=== PATIENT | male | born 1975 | race African-American/Black ===

== ENCOUNTER 2019-11-22 17:21 | Inpatient (IN) | payer OTHER ==
--- NOTE | 2019-11-22 18:31 | HP ---
CIWA Score Nausea/Vomitin-No Nausea/No Vomiting Muscle Tremors: 1-None Visible, but [place] Anxiety: 4-Mod. Anxious/Guarded Agitation: 4-Moderately Restless Paroxysmal Sweats: 3 Orientation: 0-Oriented Tacttile Disturbances: 0-None Auditory Disturbances: 0-None Visual Disturbances: 0-None Headache: 0-None Present CIWA-Ar Total Score: 12 - Admission Criteria OASAS Guidelines: Admission for Medically Managed Detox: Requires at least one of the followin. CIWA greater than 12 2. Seizures within the past 24 hours 3. Delirium tremens within the past 24 hours 4. Hallucinations within the past 24 hours 5. Acute intervention needed for co occurring medical disorder 6. Acute intervention needed for co occurring psychiatric disorder 7. Severe withdrawal that cannot be handled at a lower level of care (continued vomiting, continued diarrhea, abnormal vital signs) requiring intravenous medication and/or fluids 8. Patient presents the following: CIWA greater than 12 Admission Criteria Met: Admission criteria met Admitting History and Physical - Smoking History Smoking history: Current every day smoker Have you smoked in the past 12 months: Yes Aproximately how many cigarettes per day: 12 - Alcohol/Substance Use Hx Alcohol Use: Yes Admission ROS S - [facility] Chief Complaint: HERE FOR ALCOHOL DETOX. C/O WITHDRAWAL SX'S Allergies/Adverse Reactions: Allergies Allergy/AdvReac Type Severity Reaction Status Date / Time No Known Allergies Allergy Verified 11/23/15 14:36 History of Present Illness: HERE FOR ALCOHOL DETOX. CLIENT IS SELF REFERRED. KNOWN TO PROGRAM LAST HERE 2 YEARS AGO. REPORTS DAILY ALCOHOL INTAKE. last use a few hours ago. + EYE BUFFING TURNER AND COUNTER, DENIES HX/O SEIZURES AND BLACKOUTS. HE ALSO ABUSE COCAINE, CANNABIS, DENIES IVDU, HX/O DRUG OVERDOSE. DENIES ANY CLEAN TIME IN THE PAST 1 YEAR. HOMELESS, UNEMPLOYED, OPEN WARRANT Exam Limitations: No Limitations - Ebola screening Have you traveled outside of the country in the last 21 days: No Have you had contact with anyone from an Ebola affected area: No Have you been sick,other than usual withdrawal symptoms: No Do you have a fever: No - Review of Systems Constitutional: No Symptoms Reported EENT: reports: No Symptoms Reported Respiratory: reports: No Symptoms reported Cardiac: reports: No Symptoms Reported GI: reports: No Symptoms Reported : reports: No Symptoms Reported Musculoskeletal: reports: Back Pain Integumentary: reports: Sweating Neuro: reports: No Symptoms reported Endocrine: reports: No Symptoms Reported Hematology: reports: No Symptoms Reported Psychiatric: reports: Orientated x3, Agitated (IRRITABLE), Anxious, Depressed (DENIES SI/HI) Other Systems: Reviewed and Negative Patient History - Patient Medical History Hx Anemia: No Hx Asthma: No Hx Chronic Obstructive Pulmonary Disease (COPD): No Hx Cancer: No Hx Cardiac Disorders: No Hx Congestive Heart Failure: No Hx Hypertension: No Hx Hypercholesterolemia: No Hx Pacemaker: No HX Cerebrovascular Accident: No Hx Seizures: No Hx Dementia: No Hx Diabetes: No Hx Gastrointestinal Disorders: No Hx Liver Disease: No Hx Genitourinary Disorders: No Hx Sexually Transmitted Disorders: No Hx Renal Disease (ESRD): No Hx Thyroid Disease: No Hx Human Immunodeficiency Virus (HIV): No Hx Hepatitis C: No (negative) Hx Depression: Yes Hx Suicide Attempt: Yes (2013 tried to jump in oncoming train but was saved. denies any S/H ideation) Hx Bipolar Disorder: Yes Hx Schizophrenia: No - Patient Surgical History Past Surgical History: Yes Hx Neurologic Surgery: No Hx Cataract Extraction: No Hx Cardiac Surgery: No Hx Lung Surgery: No Hx Breast Surgery: No Hx Breast Biopsy: No Hx Abdominal Surgery: Yes (bilateral inguinal hernia repair) Hx Appendectomy: No Hx Cholecystectomy: No Hx Genitourinary Surgery: No Hx Section: No Hx Orthopedic Surgery: No Anesthesia Reaction: No - PPD History Previous Implant?: Yes Documented Results: Negative w/proof Implanted On Prior [facility] Admission?: Yes Date: 02/06/15 Results: 0 MM PPD to be Administered?: Yes - Smoking Cessation Smoking history: Current every day smoker Have you smoked in the past 12 months: Yes Aproximately how many cigarettes per day: 10 Cigars Per Day: 0 Hx Chewing Tobacco Use: No Initiated information on smoking cessation: Yes 'Breaking Loose' booklet given: 11/22/19 - Substance & Tx. History Hx Alcohol Use: Yes Hx Substance Use: Yes Substance Use Type: Alcohol, Cocaine, Marijuana Hx Substance Use Treatment: Yes ([facility]) - Substances abused Alcohol Substance route: Oral Frequency: Daily Amount used: 3- FIFTH/ 4 CANS OF BEER Age of first use: 18 Date of last use: 11/22/19 Cocaine Substance route: Smoking Frequency: Daily Amount used: 4GMS Age of first use: 18 Date of last use: 11/22/19 Marijuana/Hashish Substance route: Smoking Frequency: 1-2 times per week Amount used: 1/2 JOINT Age of first use: 13 Date of last use: 11/21/19 Admission Physical Exam [facility] - Physical General Appearance: Yes: Moderate Distress, Thin, Tremorous, Sweating, Anxious HEENTM: Yes: EOMI, Normocephalic, Normal Voice, SAEID, Pharynx Normal, Other (POOR DENTITION MISSING TEETH) Respiratory: Yes: Chest Non-Tender, Lungs Clear, Normal Breath Sounds, No Respiratory Distress, No Accessory Muscle Use Neck: Yes: No masses,lesions,Nodules, Supple, Trachea in good position Breast: Yes: Breasts Symetrical Cardiology: Yes: Regular Rhythm, Regular Rate, S1, S2 Abdominal: Yes: Normal Bowel Sounds, Non Tender, Soft, Other (HEALING ABRASION TO LEFT ABD WALL) Genitourinary: Yes: Within Normal Limits Back: Yes: Normal Inspection Musculoskeletal: Yes: full range of Motion, Gait Steady Extremities: Yes: Normal Capillary Refill, Normal Range of Motion, Non-Tender, Tremors (FELT) Neurological: Yes: Fully Oriented, Alert, Motor Strength 5/5, Depressed Affect Integumentary: Yes: Dry, Warm, Other (DRYSKIN WITH MUTLIPLE CALLUSES TO HANDS AND FEET) - Diagnostic (1) Homeless Current Visit: Yes Status: Chronic (2) Depressed affect Current Visit: Yes Status: Acute (3) Alcohol dependence with uncomplicated withdrawal Current Visit: Yes Status: Acute (4) Cocaine dependence Current Visit: Yes Status: Acute Qualifiers: Substance use status: uncomplicated Qualified Code(s): F14.20 - Cocaine dependence, uncomplicated (5) Marijuana dependence Current Visit: Yes Status: Acute (6) Nicotine dependence Current Visit: Yes Status: Chronic (7) Substance induced mood disorder Current Visit: Yes Status: Acute (8) Bipolar disorder Current Visit: Yes Status: Chronic Comment: Historical diagnosis (self- report). Cleared for Admission [facility] - Detox or Rehab [facility] Level of Care: Medically Managed Detox Regimen/Protocol: Librium Claeared for Rehab Admission: No Inpatient Rehab Admission - Rehab Decision to Admit Inpatient rehab admission?: No
[2019-11-22] MEDS ORDERED: chlordiazePOXIDE HCL 25 MG CAPSULE PO PRN (18:37)
[2019-11-22] MEDS ORDERED: DICYCLOMINE HCL 10 MG CAPSULE PO PRN (18:37)
[2019-11-22] MEDS ORDERED: guaiFENesin 200 MG/10 ML 10 ML UNIT-DOSE CUPS PO PRN (18:37)
[2019-11-22] MEDS ORDERED: ONDANSETRON *ODT* 4 MG TABLET SL PRN (18:37)
[2019-11-22] MEDS ORDERED: ACETAMINOPHEN 325 MG TABLET (FP) PO PRN ×2 (18:37)
[2019-11-22] MEDS ORDERED: MENTHOL/PHENOL 1 EACH UD MM PRN (18:37)
[2019-11-22] MEDS ORDERED: P-EPHED 60MG/TRIPROLIDI 2.5MG TABLET PO PRN (18:37)
[2019-11-22] MEDS ORDERED: METHOCARBAMOL 500 MG TABLET PO PRN (18:37)
[2019-11-22] MEDS ORDERED: IBUPROFEN 400 MG TABLET (FP) PO PRN (18:37)
[2019-11-22] MEDS ORDERED: MAG HYDROX/AL HYDROX/SIMETH 30 ML UNIT-DOSE CUP PO PRN (18:37)
[2019-11-22] MEDS ORDERED: NICOTINE POLACRILEX 2 MG GUM BUC PRN (18:37)
[2019-11-22] MEDS ORDERED: hydrOXYzine PAMOATE 25 MG CAPSULE (FP) PO PRN (18:37)
[2019-11-22] MEDS ORDERED: MAGNESIUM HYDROX 2400MG/30ML ORAL SUSPENSION 30 ML CUP PO PRN (18:37)
[2019-11-22] MEDS ORDERED: MAGNESIUM CITRATE 300 ML BOTTLE PO PRN (18:37)
[2019-11-22] MEDS ORDERED: BISMUTH SUBSALICYLATE 524 MG/30 ML UD PO PRN (18:37)
[2019-11-22 21:26] VITALS: BMI 24.7
[2019-11-22] MEDS: THIAMINE HCL 100 MG TABLET (FP) PO SCH (23:11)
[2019-11-22] MEDS: chlordiazePOXIDE HCL 25 MG CAPSULE PO SCH (23:11)
[2019-11-22] MEDS: MELATONIN 5 MG TABLETS PO SCH (23:14)
[2019-11-23] MEDS: chlordiazePOXIDE HCL 25 MG CAPSULE PO SCH ×4 (06:58→22:18)
--- NOTE | 2019-11-23 09:20 | EKG ---
Test Reason : Blood Pressure : / mmHG Vent. Rate : 080 BPM Atrial Rate : 080 BPM P-R Int : 136 ms QRS Dur : 086 ms QT Int : 402 ms P-R-T Axes : 062 045 051 degrees QTc Int : 463 ms NORMAL SINUS RHYTHM NORMAL ECG NO PREVIOUS ECGS AVAILABLE Confirmed by MD HALI, NAM ([id number]) on 11/23/2019 9:19:47 AM Referred By: Confirmed By:NAM LAL MD
--- NOTE | 2019-11-23 09:56 | CONSULT ---
[facility] Psychiatric Consult - Data Date of interview: 11/23/19 Admission source: Self-referred Identifying data: Mr Valera is a 44 years old single Black male, father of an 18 daughter, unemployed, homeless seeking detox treatment for alcohol, cocaine and cannabis Substance Abuse History: Reports history of alcohol, cocaine and marijuana use. Refer to addiction counselor's summary for firther information Medical History: Significant for history of anemia, treatment for gonorrhea and bilatral inguinal hernia repair. Smokes 12 cigarettes daily Psychiatric History: Patient is known for multiple previous admissions to this facility. History is conflictual as evidenced by few descrepancies from previous entries . He reports that his first psychiatric contact occured in 2000 when he was admitted to [facility], diagnosed with Bipolar Disorder and started on psychotropic medications. Reports that later, he was diagnosed with PTSD as well. Reports multiple subsequent psychiatric hospitalizations at various institutions including [facility], [facility], [facility], , [facility]. Reports non adherence to OPD care but visits ED for medication refills. Claims that he takes Seroquel and Gabapentin and has not taken then in 2 months. According to recoerd, he used to be on Gabapentin 400 mg/tid, Seroquel 100 mg/bid. Reports 2 previous suicidal attempt via self-mutilation and trying to jump in front of oncoming train. At present, denies experiencing psychotic, manic symptoms, S/H ideations. However, reports feeling depressed and sleeping poorly. He is willing to resume medications Mental Status Exam - Mental Status Exam Alert and Oriented to: Time, Place, Person Cognitive Function: Fair Mood: Depressed Affect: Appropriate Speech Pattern: Clear Thought Process: Intact, Goal Oriented Hallucinations: Denies Suicidal Ideation: Denies Homicidal Ideation: Denies Insight/Judgement: Poor Sleep: Poorly Appetite: Good Muscle strength/Tone: Normal Gait/Station: Normal Psychiatric Findings - Problem List ([place] 1, 2,3) (1) Bipolar disorder Current Visit: Yes Status: Chronic Comment: Historical diagnosis (self- report). (2) Schizoaffective disorder Current Visit: Yes Status: Ruled-out (3) PTSD (post-traumatic stress disorder) Current Visit: Yes Status: Chronic (4) Substance induced mood disorder Current Visit: Yes Status: Acute (5) Substance-induced sleep disorder Current Visit: Yes Status: Acute (6) Alcohol dependence with uncomplicated withdrawal Current Visit: Yes Status: Acute (7) Cocaine dependence Current Visit: Yes Status: Acute Qualifiers: Substance use status: uncomplicated Qualified Code(s): F14.20 - Cocaine dependence, uncomplicated (8) Cannabis dependence Current Visit: Yes Status: Acute (9) Nicotine dependence Current Visit: Yes Status: Chronic - Initial Treatment Plan Initial Treatment Plan: 1) Start Seroquel 100 mg po HS and Gabapentin 400 mg po TID. 2) Continue inpatient detoxification
--- NOTE | 2019-11-23 10:23 | PN ---
[facility] CIWA - CIWA Score Nausea/Vomitin Muscle Tremors: 2 Anxiety: 3 Agitation: 2 Paroxysmal Sweats: 1-Minimal Palms Moist Orientation: 0-Oriented Tacttile Disturbances: 1-Very Mild Itch/Numbness Auditory Disturbances: 0-None Visual Disturbances: 0-None Headache: 2-Mild CIWA-Ar Total Score: 13 [facility] Progress Note (SOAP) Subjective: alert,irritable,anxious,interrupted sleep,tremor,aching pain in the body and back Objective: 11/23/19 10:27 Vital Signs Temperature 97.8 F 11/23/19 09:02 Pulse Rate 81 11/23/19 09:02 Respiratory Rate 16 11/23/19 09:02 Blood Pressure 110/80 11/23/19 09:02 O2 Sat by Pulse Oximetry (%) 98 11/23/19 09:02 Assessment: 11/23/19 10:29 withdrawal symptom 11/23/19 10:29 labs pending Plan: withdrawal symptom,continue detox librium regimen
[2019-11-23] MEDS: PRENATAL VITAMINS W/ FOLIC ACID TABLET (FP) PO SCH (11:05)
[2019-11-23] MEDS: NICOTINE 14 MG/24 HOURS TOPICAL PATCH TD SCH (11:05)
[2019-11-23 11:09] LABS: HEMATOCRIT 41.4 % (35.4-49); HEMOGLOBIN 13.6 GM/dL (11.7-16.9); MCHC 32.9 g/dl (32.0-35.9); MEAN CELL VOLUME 94.2 fl (80-96); MEAN PLT VOLUME 8.4 fl (7.5-11.1); PLATELET COUNT 353 K/MM3 (134-434); RBC 4.39 M/mm3 (4.00-5.60); RDW 15.4 % (11.9-15.9); WHITE BLOOD COUNT 3.5 K/mm3 (4.0-10.0)
[2019-11-23 11:16] LABS: BILIRUBIN,TOTAL 0.2 mg/dL (0.2-1); BLOOD UREA NITROGEN 13.1 mg/dL (7-18); CALCIUM 8.7 mg/dL (8.5-10.1); CREATININE 0.9 mg/dL (0.55-1.3); POTASSIUM 4.2 mmol/L (3.5-5.1)
[2019-11-23] MEDS: GABAPENTIN 400 MG CAPSULE PO SCH ×2 (14:56→22:18)
[2019-11-23] MEDS ORDERED: QUEtiapine FUMARATE 100 MG TABLET (FP) PO SCH (22:00)
[2019-11-23] MEDS: THIAMINE HCL 100 MG TABLET (FP) PO SCH (22:18)
[2019-11-23] MEDS: MELATONIN 5 MG TABLETS PO SCH (22:38)
[2019-11-24] MEDS ORDERED: chlordiazePOXIDE HCL 25 MG CAPSULE PO SCH (05:00)
[2019-11-24] MEDS: GABAPENTIN 400 MG CAPSULE PO SCH ×2 (07:03→14:49)
--- NOTE | 2019-11-24 10:22 | PN ---
S CIWA - CIWA Score Nausea/Vomitin Muscle Tremors: 2 Anxiety: 1-Mildly Anxious Agitation: 1-Slight > Activity Paroxysmal Sweats: No Perspiration Orientation: 0-Oriented Tacttile Disturbances: 0-None Auditory Disturbances: 0-None Visual Disturbances: 0-None Headache: 0-None Present CIWA-Ar Total Score: 6 [facility] Progress Note (SOAP) Subjective: nausea vomiting tired body aches Objective: 11/24/19 10:19 Vital Signs Temperature 98.8 F 11/24/19 08:30 Pulse Rate 88 11/24/19 08:30 Respiratory Rate 18 11/24/19 08:30 Blood Pressure 116/76 11/24/19 08:30 O2 Sat by Pulse Oximetry (%) 97 11/24/19 08:30 Laboratory Tests 11/22/19 11/23/19 11/23/19 19:15 08:10 08:10 WBC 3.5 L RBC 4.39 Hgb 13.6 Hct 41.4 MCV 94.2 MCH 31.0 MCHC 32.9 RDW 15.4 Plt Count 353 MPV 8.4 Sodium Potassium Chloride Carbon Dioxide Anion Gap BUN Creatinine Est GFR (CKD-EPI)AfAm Est GFR (CKD-EPI)NonAf Random Glucose Calcium Total Bilirubin AST ALT Alkaline Phosphatase Total Protein Albumin Syphilis Serology Non-reactive COVID-19 ([facility]) Not detected 11/23/19 08:10 WBC RBC Hgb Hct MCV MCH MCHC RDW Plt Count MPV Sodium 141 Potassium 4.2 Chloride 110 H Carbon Dioxide 25 Anion Gap 7 L BUN 13.1 Creatinine 0.9 Est GFR (CKD-EPI)AfAm 119.13 Est GFR (CKD-EPI)NonAf 102.79 Random Glucose 126 H Calcium 8.7 Total Bilirubin 0.2 AST 16 ALT 21 Alkaline Phosphatase 78 Total Protein 6.0 L Albumin 3.0 L Syphilis Serology COVID-19 ([facility]Y) aaox3 lying in bed vomitius noted on bedside table no acute distress Assessment: 11/24/19 10:21 withdrawals pt states he doesn't want anything for nausea I am ok, i just need rest Plan: continue detox with lesser dose zofran ordered prn increase fluids
[2019-11-24] MEDS: NICOTINE 14 MG/24 HOURS TOPICAL PATCH TD SCH (11:42)
[2019-11-24] MEDS: PRENATAL VITAMINS W/ FOLIC ACID TABLET (FP) PO SCH (11:42)
[2019-11-24] MEDS ORDERED: chlordiazePOXIDE 5 MG CAPSULE PO SCH (11:45)
[2019-11-24] MEDS ORDERED: TRIMETHOBENZAMIDE HCL 200MG/2ML INJ IM ONE (12:00)
[2019-11-24 13:11] VITALS: BP 143/83; PULSE 91; TEMP 96.9
--- NOTE | 2019-11-24 15:32 | PN ---
[facility] Progress Note Note: pt states he wants to leave to see his daughter. Pt was reminded how sickly he was feeling and vomitus at bedside earlier today. Pt was aware and now wants to leave. Pt was made aware of risk of leaving without completing detox and a chance for relapse, seizure, DT or loss, pt chose to sign out AMA.
--- NOTE | 2019-11-24 15:32 | DS ---
[facility] Detox Discharge Summary Admission Date: 11/22/19 - History Present History: Alcohol Dependence, Cannabis Dependence, Cocaine Dependence - Physical Exam Results Vital Signs: Vital Signs Temperature 96.9 F L 11/24/19 12:23 Pulse Rate 91 H 11/24/19 12:23 Respiratory Rate 11/24/19 12:23 Blood Pressure 143/83 11/24/19 12:23 O2 Sat by Pulse Oximetry (%) 97 11/24/19 12:23 Pertinent Admission Physical Exam Findings: Vital Signs Temperature 96.9 F L 11/24/19 12:23 Pulse Rate 91 H 11/24/19 12:23 Respiratory Rate 11/24/19 12:23 Blood Pressure 143/83 11/24/19 12:23 O2 Sat by Pulse Oximetry (%) 97 11/24/19 12:23 Laboratory Tests 11/22/19 11/23/19 11/23/19 19:15 08:10 08:10 WBC 3.5 L RBC 4.39 Hgb 13.6 Hct 41.4 MCV 94.2 MCH 31.0 MCHC 32.9 RDW 15.4 Plt Count 353 MPV 8.4 Sodium Potassium Chloride Carbon Dioxide Anion Gap BUN Creatinine Est GFR (CKD-EPI)AfAm Est GFR (CKD-EPI)NonAf Random Glucose Calcium Total Bilirubin AST ALT Alkaline Phosphatase Total Protein Albumin Syphilis Serology Non-reactive COVID-19 ([facility]) Not detected 11/23/19 08:10 WBC RBC Hgb Hct MCV MCH MCHC RDW Plt Count MPV Sodium 141 Potassium 4.2 Chloride 110 H Carbon Dioxide 25 Anion Gap 7 L BUN 13.1 Creatinine 0.9 Est GFR (CKD-EPI)AfAm 119.13 Est GFR (CKD-EPI)NonAf 102.79 Random Glucose 126 H Calcium 8.7 Total Bilirubin 0.2 AST 16 ALT 21 Alkaline Phosphatase 78 Total Protein 6.0 L Albumin 3.0 L Syphilis Serology COVID-19 ([facility]) aaox3 ambulating no acute distress however pt is at risk for relapse. pt was made aware and pt chose to sign out AMA. - Treatment Hospital Course: Rehab Referral Accepted - Medication Discharge Medications: Ambulatory Orders NK [No Known Home Medication] 11/22/19 - Diagnosis (1) Alcohol dependence with uncomplicated withdrawal Current Visit: Yes Status: Chronic (2) Cannabis dependence Current Visit: Yes Status: Chronic (3) Cocaine dependence Current Visit: Yes Status: Chronic Qualifiers: Substance use status: uncomplicated Qualified Code(s): F14.20 - Cocaine dependence, uncomplicated (4) Depressed affect Current Visit: Yes Status: Acute (5) Marijuana dependence Current Visit: Yes Status: Acute (6) Substance induced mood disorder Current Visit: Yes Status: Acute (7) Substance-induced sleep disorder Current Visit: Yes Status: Acute (8) Bipolar disorder Current Visit: Yes Status: Chronic (9) Homeless Current Visit: Yes Status: Chronic (10) Nicotine dependence Current Visit: Yes Status: Chronic (11) PTSD (post-traumatic stress disorder) Current Visit: Yes Status: Chronic (12) Schizoaffective disorder Current Visit: Yes Status: Ruled-out - AMA Did Patient Leave Against Medical Advice: Yes
[2019-11-25] MEDS ORDERED: chlordiazePOXIDE HCL 10 MG CAPSULE PO PRN
[2019-11-25] MEDS ORDERED: chlordiazePOXIDE HCL 10 MG CAPSULE PO SCH (05:00)
[2019-11-26] MEDS ORDERED: chlordiazePOXIDE HCL 10 MG CAPSULE PO SCH (05:00)
[2019-11-27] MEDS ORDERED: chlordiazePOXIDE HCL 10 MG CAPSULE PO ONE (05:00)
== END 2019-11-24 03:35 | disposition left against medical advice (07) | DRG 770 ==
LOC: YASAS 17:21 → Y6N 18:51
PROVIDERS: ADMIT Allergy & Immunology; ATTEND Allergy & Immunology
PROC: HZ2ZZZZ Detoxification Services for Substance Abuse Treatment (ICD-10-PCS; principal; 2019-11-22)
DX: F10.230 Alcohol dependence with withdrawal, uncomplicated (principal); F14.20 Cocaine dependence, uncomplicated; F12.20 Cannabis dependence, uncomplicated; F17.210 Nicotine dependence, cigarettes, uncomplicated; F19.282 Other psychoactive substance dependence with psychoactive substance-induced sleep disorder; F19.24 Other psychoactive substance dependence with psychoactive substance-induced mood disorder; F31.9 Bipolar disorder, unspecified; F43.10 Post-traumatic stress disorder, unspecified; D64.9 Anemia, unspecified; R45.89 Other symptoms and signs involving emotional state; Z86.19 Personal history of other infectious and parasitic diseases; Z91.5 Personal history of self-harm; Z59.0 Homelessness
CPT/HCPCS: 36415; 80053; 85027; 86780; 93005; 93010; Q0162; U0003

== ENCOUNTER 2020-06-18 11:07 | Inpatient (IN) | payer OTHER ==
[2020-06-18 11:58] VITALS: BMI 23.6
[2020-06-18] MEDS ORDERED: MENTHOL/PHENOL 1 EACH UD MM PRN (11:58)
[2020-06-18] MEDS ORDERED: ONDANSETRON *ODT* 4 MG TABLET SL PRN (11:58)
[2020-06-18] MEDS ORDERED: ACETAMINOPHEN 325 MG TABLET (FP) PO PRN ×2 (11:58)
[2020-06-18] MEDS ORDERED: BISMUTH SUBSALICYLATE 524 MG/30 ML UD PO PRN (11:58)
[2020-06-18] MEDS ORDERED: MAGNESIUM HYDROX 2400MG/30ML ORAL SUSPENSION 30 ML CUP PO PRN (11:58)
[2020-06-18] MEDS ORDERED: MAG HYDROX/AL HYDROX/SIMETH 30 ML UNIT-DOSE CUP PO PRN (11:58)
[2020-06-18] MEDS ORDERED: chlordiazePOXIDE HCL 25 MG CAPSULE PO PRN (11:58)
[2020-06-18] MEDS ORDERED: NICOTINE POLACRILEX 2 MG GUM BUC PRN (11:58)
[2020-06-18] MEDS ORDERED: MAGNESIUM CITRATE 300 ML BOTTLE PO PRN (11:58)
[2020-06-18] MEDS ORDERED: METHOCARBAMOL 500 MG TABLET PO PRN (11:58)
[2020-06-18] MEDS ORDERED: IBUPROFEN 400 MG TABLET (FP) PO PRN (11:58)
[2020-06-18] MEDS: chlordiazePOXIDE HCL 25 MG CAPSULE PO SCH ×3 (13:07→22:22)
[2020-06-18] MEDS: PRENATAL VITAMINS W/ FOLIC ACID TABLET (FP) PO SCH (13:07)
[2020-06-18] MEDS: NICOTINE 21 MG/24 HOURS TOPICAL PATCH TD SCH (13:07)
[2020-06-18 14:49] LABS: HEMATOCRIT 36.8 % (35.4-49); HEMOGLOBIN 12.2 GM/dL (11.7-16.9); MCH 30.6 pg (25.7-33.7); MCHC 33.2 g/dl (32.0-35.9); MEAN PLT VOLUME 8.5 fl (7.5-11.1); PLATELET COUNT 421 K/MM3 (134-434)
[2020-06-18] MEDS: hydrOXYzine PAMOATE 25 MG CAPSULE (FP) PO SCH ×3 (15:15→22:24)
[2020-06-18 20:27] LABS: HIV INTERPRETATION NEGATIVE (NEGATIVE)
[2020-06-18] MEDS: THIAMINE HCL 100 MG TABLET (FP) PO SCH (22:23)
[2020-06-18] MEDS: MELATONIN 5 MG TABLETS PO SCH (22:45)
[2020-06-19] MEDS: hydrOXYzine PAMOATE 25 MG CAPSULE (FP) PO SCH ×5 (06:08→22:50)
[2020-06-19] MEDS: chlordiazePOXIDE HCL 25 MG CAPSULE PO SCH ×4 (06:08→22:50)
[2020-06-19 10:18] LABS: POTASSIUM 4.9 mmol/L (3.5-5.1)
[2020-06-19 10:20] LABS: CALCIUM 9.3 mg/dL (8.5-10.1)
[2020-06-19 10:21] LABS: ALBUMIN 3.5 g/dl (3.4-5.0); BLOOD UREA NITROGEN 18.4 mg/dL (7-18)
[2020-06-19 10:24] LABS: CREATININE 1.1 mg/dL (0.55-1.3)
[2020-06-19 10:25] LABS: BILIRUBIN,TOTAL 0.7 mg/dL (0.2-1); TOT PROT 7.1 g/dl (6.4-8.2)
[2020-06-19] MEDS: DIVALPROEX SODIUM 250 MG TABLET E.C. PO SCH ×2 (10:32→22:47)
[2020-06-19] MEDS: PRENATAL VITAMINS W/ FOLIC ACID TABLET (FP) PO SCH (10:33)
[2020-06-19] MEDS: NICOTINE 21 MG/24 HOURS TOPICAL PATCH TD SCH (10:49)
[2020-06-19] MEDS: GABAPENTIN 100 MG CAPSULE PO SCH ×2 (14:42→22:50)
[2020-06-19] MEDS ORDERED: QUEtiapine FUMARATE 100 MG TABLET (FP) PO SCH (22:00)
[2020-06-19] MEDS: THIAMINE HCL 100 MG TABLET (FP) PO SCH (22:50)
[2020-06-19] MEDS: MELATONIN 5 MG TABLETS PO SCH (22:50)
[2020-06-20] MEDS: chlordiazePOXIDE HCL 25 MG CAPSULE PO SCH ×2 (05:58→10:01)
[2020-06-20] MEDS: GABAPENTIN 100 MG CAPSULE PO SCH ×2 (05:59→14:01)
[2020-06-20] MEDS: hydrOXYzine PAMOATE 25 MG CAPSULE (FP) PO SCH ×3 (06:07→14:01)
[2020-06-20] MEDS: DIVALPROEX SODIUM 250 MG TABLET E.C. PO SCH (10:00)
[2020-06-20] MEDS: PRENATAL VITAMINS W/ FOLIC ACID TABLET (FP) PO SCH (10:02)
[2020-06-20] MEDS: NICOTINE 21 MG/24 HOURS TOPICAL PATCH TD SCH (10:02)
[2020-06-20 15:40] VITALS: BP 141/92; PULSE 87; TEMP 97.8
[2020-06-21] MEDS ORDERED: chlordiazePOXIDE HCL 10 MG CAPSULE PO PRN
[2020-06-21] MEDS ORDERED: chlordiazePOXIDE HCL 10 MG CAPSULE PO SCH (05:00)
[2020-06-22] MEDS ORDERED: chlordiazePOXIDE HCL 10 MG CAPSULE PO SCH (05:00)
[2020-06-23] MEDS ORDERED: chlordiazePOXIDE HCL 10 MG CAPSULE PO ONE (05:00)
== END 2020-06-20 14:22 | disposition left against medical advice (07) | DRG 770 ==
LOC: YASAS 11:07 → Y6N 12:27
PROVIDERS: ADMIT Allergy & Immunology; ATTEND Allergy & Immunology
PROC: HZ2ZZZZ Detoxification Services for Substance Abuse Treatment (ICD-10-PCS; principal; 2020-06-18)
DX: F10.230 Alcohol dependence with withdrawal, uncomplicated (principal); F14.20 Cocaine dependence, uncomplicated; F12.20 Cannabis dependence, uncomplicated; F17.210 Nicotine dependence, cigarettes, uncomplicated; F25.9 Schizoaffective disorder, unspecified; F31.9 Bipolar disorder, unspecified; F43.10 Post-traumatic stress disorder, unspecified; M54.5 Low back pain; G89.29 Other chronic pain; M41.9 Scoliosis, unspecified; M19.90 Unspecified osteoarthritis, unspecified site; K64.9 Unspecified hemorrhoids; Z86.19 Personal history of other infectious and parasitic diseases; Z59.0 Homelessness
CPT/HCPCS: 36415; 80053; 82962; 85027; 86780; 87389; C9803; U0003; U0005

== ENCOUNTER 2023-02-10 11:03 | Inpatient (IN) | payer OTHER ==
[2023-02-10 12:16] VITALS: BMI 23.5
[2023-02-10] MEDS ORDERED: IBUPROFEN 400 MG TABLET (FP) PO PRN (12:53)
[2023-02-10] MEDS ORDERED: guaiFENesin 600 MG TABLET.ER (FP) PO PRN (12:53)
[2023-02-10] MEDS ORDERED: hydrOXYzine PAMOATE 25 MG CAPSULE (FP) PO PRN (12:53)
[2023-02-10] MEDS ORDERED: IBUPROFEN 600 MG TABLET (FP) PO PRN (12:53)
[2023-02-10] MEDS ORDERED: METHOCARBAMOL 500 MG TABLET PO PRN (12:53)
[2023-02-10] MEDS ORDERED: BISMUTH SUBSALICYLATE 524 MG/30 ML PO PRN (12:53)
[2023-02-10] MEDS ORDERED: ACETAMINOPHEN 325 MG TABLET (FP) PO PRN (12:53)
[2023-02-10] MEDS ORDERED: BENZOCAINE/MENTHOL (CHLORASEPTIC ) LOZENGE MM PRN (12:53)
[2023-02-10] MEDS ORDERED: BENZONATATE 200 MG CAPSULE PO PRN (12:53)
[2023-02-10] MEDS ORDERED: MAGNESIUM HYDROX 2400MG/30ML ORAL SUSPENSION 30 ML CUP PO PRN (12:53)
[2023-02-10] MEDS ORDERED: NALOXONE HCL (KLOXXADO) 8 MG SPRAY NS PRN (12:53)
[2023-02-10] MEDS ORDERED: LOPERAMIDE HCL 2 MG CAPSULE PO PRN (12:53)
[2023-02-10] MEDS ORDERED: DICYCLOMINE HCL 10 MG CAPSULE PO PRN (12:53)
[2023-02-10] MEDS ORDERED: MAG HYDROX/AL HYDROX/SIMETH 30 ML UNIT-DOSE CUP PO PRN (12:53)
[2023-02-10] MEDS ORDERED: ONDANSETRON *ODT* 4 MG TABLET SL PRN (12:53)
[2023-02-10] MEDS ORDERED: POLYETHYLENE GLYCOL (HEALTHYLAX) 3350 17 GM PACKET PO PRN (12:53)
[2023-02-10] MEDS ORDERED: chlordiazePOXIDE HCL 25 MG CAPSULE PO PRN (12:53)
[2023-02-10] MEDS ORDERED: NALOXONE HCL 0.4 MG/ML VIAL IM PRN (12:53)
[2023-02-10] MEDS ORDERED: NICOTINE POLACRILEX 2 MG GUM BUC PRN (12:58)
[2023-02-10] MEDS: PRENATAL VITAMINS W/ FOLIC ACID TABLET (FP) PO SCH (13:35)
[2023-02-10] MEDS ORDERED: METHOCARBAMOL 500 MG TABLET ONE (13:41)
[2023-02-10] MEDS: chlordiazePOXIDE HCL 25 MG CAPSULE PO SCH ×2 (18:02→22:36)
[2023-02-10] MEDS: QUEtiapine FUMARATE 100 MG TABLET (FP) PO SCH (22:36)
[2023-02-10] MEDS: DIVALPROEX SODIUM 250 MG TABLET E.C. PO SCH (22:36)
[2023-02-10] MEDS: THIAMINE HCL 100 MG TABLET (FP) PO SCH (22:36)
[2023-02-10] MEDS: MELATONIN 5 MG TABLETS PO SCH (22:36)
[2023-02-11] MEDS: chlordiazePOXIDE HCL 25 MG CAPSULE PO SCH ×5 (05:45→23:26)
[2023-02-11 08:28] LABS: POTASSIUM 4.1 mmol/L (3.5-5.1)
[2023-02-11 08:33] LABS: ALBUMIN 2.6 g/dl (3.4-5.0); BLOOD UREA NITROGEN 24.3 mg/dL (7-18)
[2023-02-11 08:35] LABS: HEMATOCRIT 23.7 % (35.4-49); MCH 24.2 pg (25.7-33.7); MCHC 29.5 g/dl (32.0-35.9); MEAN CELL VOLUME 82.1 fl (80-96); MEAN PLT VOLUME 8.9 fl (7.5-11.1); PLATELET COUNT 532 10^3/uL (134-434); RBC 2.88 M/mm3 (4.00-5.60); RDW 23.4 % (11.9-15.9); WHITE BLOOD COUNT 4.9 K/mm3 (4.0-10.0)
[2023-02-11 08:37] LABS: BILIRUBIN,TOTAL 0.4 mg/dL (0.2-1); CREATININE 0.8 mg/dL (0.55-1.3); TOT PROT 6.7 g/dl (6.4-8.2)
[2023-02-11] MEDS ORDERED: QUEtiapine FUMARATE 50 MG TABLET PO SCH (10:00)
[2023-02-11] MEDS: PRENATAL VITAMINS W/ FOLIC ACID TABLET (FP) PO SCH (10:49)
[2023-02-11] MEDS: DIVALPROEX SODIUM 250 MG TABLET E.C. PO SCH ×2 (10:49→23:25)
[2023-02-11 11:14] VITALS: BP 104/70; PULSE 128; RESP 17; TEMP 98.1
[2023-02-11] MEDS: MELATONIN 5 MG TABLETS PO SCH (23:26)
[2023-02-11] MEDS: QUEtiapine FUMARATE 100 MG TABLET (FP) PO SCH (23:26)
[2023-02-11] MEDS: THIAMINE HCL 100 MG TABLET (FP) PO SCH (23:26)
[2023-02-12] MEDS ORDERED: chlordiazePOXIDE HCL 25 MG CAPSULE PO SCH (05:00)
[2023-02-13] MEDS ORDERED: chlordiazePOXIDE HCL 10 MG CAPSULE PO PRN
[2023-02-13] MEDS ORDERED: chlordiazePOXIDE HCL 10 MG CAPSULE PO SCH (05:00)
[2023-02-14] MEDS ORDERED: chlordiazePOXIDE HCL 10 MG CAPSULE PO SCH (05:00)
[2023-02-15] MEDS ORDERED: chlordiazePOXIDE HCL 10 MG CAPSULE PO ONE (05:00)
== END 2023-02-11 23:30 | disposition short-term general hospital (02) | DRG 774 ==
LOC: YASAS 11:03 → Y3N 13:52
PROVIDERS: ADMIT Allergy & Immunology; ATTEND Surgery
PROC: HZ2ZZZZ Detoxification Services for Substance Abuse Treatment (ICD-10-PCS; principal; 2023-02-10)
DX: F10.230 Alcohol dependence with withdrawal, uncomplicated (principal); F14.20 Cocaine dependence, uncomplicated; F12.20 Cannabis dependence, uncomplicated; F17.210 Nicotine dependence, cigarettes, uncomplicated; F25.9 Schizoaffective disorder, unspecified; F19.24 Other psychoactive substance dependence with psychoactive substance-induced mood disorder; F31.9 Bipolar disorder, unspecified; D64.9 Anemia, unspecified; M54.50 Low back pain, unspecified; G89.29 Other chronic pain; R53.1 Weakness; Z56.0 Unemployment, unspecified; Z59.02 Unsheltered homelessness
CPT/HCPCS: 36415; 80053; 80307; 82140; 85027; 86780; 87635; 93005; 93010

== ENCOUNTER 2023-02-11 12:08 | Inpatient (IN) | payer OTHER ==
[2023-02-11 14:06] LABS: HEMATOCRIT 23.2 % (35.4-49); MCH 24.3 pg (25.7-33.7); MCHC 30.1 g/dl (32.0-35.9); MEAN CELL VOLUME 80.9 fl (80-96); MEAN PLT VOLUME 8.8 fl (7.5-11.1); PLATELET COUNT 547 10^3/uL (134-434); RBC 2.86 M/mm3 (4.00-5.60); RDW 23.3 % (11.9-15.9); WHITE BLOOD COUNT 7.5 K/mm3 (4.0-10.0)
[2023-02-11 14:17] LABS: POTASSIUM 4.6 mmol/L (3.5-5.1)
[2023-02-11 14:19] LABS: CALCIUM 8.5 mg/dL (8.5-10.1)
[2023-02-11 14:20] LABS: ALBUMIN 2.2 g/dl (3.4-5.0); BLOOD UREA NITROGEN 18.1 mg/dL (7-18)
[2023-02-11 14:23] LABS: CREATININE 0.6 mg/dL (0.55-1.3)
[2023-02-11 14:24] LABS: BILIRUBIN,TOTAL 0.3 mg/dL (0.2-1); TOT PROT 6.4 g/dl (6.4-8.2)
[2023-02-11] MEDS ORDERED: FUROSEMIDE 40 MG/4 ML INJECTABLE VIAL IVPUSH ONE (14:31)
[2023-02-11 14:32] LABS: INR 1.17 (0.83-1.09); PROTHROMBIN TIME (PATIENT) 13.6 SEC (9.7-13.0)
[2023-02-11 14:35] LABS: ACTIVATED PTT 23.5 SECONDS (25.2-36.5)
[2023-02-11 14:43] LABS: ANISOCYTOSIS 3+; MACROCYTOSIS 0; OVALOCYTE 1+; TARGET CELLS 2+; TEAR DROP CELLS 1+
[2023-02-11] MEDS ORDERED: FUROSEMIDE 40 MG/4 ML INJECTABLE VIAL ONE (14:48)
[2023-02-11] MEDS ORDERED: chlordiazePOXIDE HCL 25 MG CAPSULE PO ONE (14:52)
[2023-02-11] MEDS ORDERED: chlordiazePOXIDE HCL 25 MG CAPSULE ONE (14:56)
[2023-02-11] MEDS ORDERED: LORazepam 1 MG TABLET PO PRN (16:12)
[2023-02-11] MEDS ORDERED: THIAMINE HCL 200 MG/2 ML VIAL IVPB ONE (16:29)
[2023-02-11] MEDS ORDERED: LORazepam 2 MG TABLET PO SCH (17:00)
[2023-02-11 17:27] LABS: RETICULOCYTES 2.12 % (0.5-1.5)
[2023-02-11] MEDS: LACTULOSE 20 GM/30 ML UDC (FOR ORAL USE ONLY) PO SCH ×2 (17:42→21:33)
[2023-02-11] MEDS: NICOTINE 14 MG/24 HOURS TOPICAL PATCH TD SCH (17:42)
[2023-02-11 17:48] LABS: PH,URINE 7.5 (5.0-8.0); URINE APPEARANCE CLEAR; URINE BILIRUBIN NEGATIVE (NEGATIVE); URINE COLOR YELLOW; URINE GLUCOSE (UA) NEGATIVE (NEGATIVE); URINE KETONE NEGATIVE (NEGATIVE); URINE LEUK ESTERASE NEGATIVE (NEGATIVE); URINE NITRITE NEGATIVE (NEGATIVE); URINE PROTEIN NEGATIVE (NEGATIVE); URINE UROBILINOGEN 0.2 mg/dL (0.2-1.0)
[2023-02-11] MEDS ORDERED: ACETAMINOPHEN 325 MG TABLET (FP) PO ONE (18:09)
[2023-02-11 18:14] VITALS: BMI 23.6
[2023-02-11] MEDS ORDERED: KETOROLAC TROMETHAMINE 15 MG/ML VIAL IVPUSH ONE (19:14)
[2023-02-11] MEDS ORDERED: LIDOCAINE 5% TOPICAL PATCH TP SCH (19:30)
[2023-02-11 20:15] LABS: BASO % 1.4 % (0-2.0); EOS % 0.4 % (0-4.5); HEMATOCRIT 25.7 % (35.4-49); HEMOGLOBIN 7.7 GM/dL (11.7-16.9); LYMPH % 14.8 % (8-40); MCH 24.2 pg (25.7-33.7); MCHC 29.9 g/dl (32.0-35.9); MEAN PLT VOLUME 8.5 fl (7.5-11.1); MONO % 10.5 % (3.8-10.2); NEUT % 72.9 % (42.8-82.8); PLATELET COUNT 491 10^3/uL (134-434); RBC 3.18 M/mm3 (4.00-5.60); RDW 23.3 % (11.9-15.9); WHITE BLOOD COUNT 8.8 K/mm3 (4.0-10.0)
[2023-02-11] MEDS: ACETAMINOPHEN 1000 MG/100 ML BAG IVPB PRN (20:35)
[2023-02-11] MEDS: PANTOPRAZOLE SODIUM 40 MG VIAL IVPUSH SCH (21:33)
[2023-02-11] MEDS: DIVALPROEX SODIUM 250 MG TABLET E.C. PO SCH (21:33)
[2023-02-11] MEDS: LIDOCAINE PATCH REMOVAL MC SCH (21:33)
[2023-02-11] MEDS: QUEtiapine FUMARATE 100 MG TABLET (FP) PO SCH (21:33)
[2023-02-11] MEDS ORDERED: DIVALPROEX SODIUM 250 MG TABLET E.C. PO SCH (22:00)
[2023-02-11] MEDS ORDERED: QUEtiapine FUMARATE 100 MG TABLET (FP) PO SCH (22:00)
[2023-02-12] MEDS: ACETAMINOPHEN 1000 MG/100 ML BAG IVPB PRN (06:37)
[2023-02-12 07:07] LABS: HEMOGLOBIN 7.5 GM/dL (11.7-16.9); MCH 24.5 pg (25.7-33.7); MCHC 30.1 g/dl (32.0-35.9); MEAN CELL VOLUME 81.6 fl (80-96); MEAN PLT VOLUME 8.5 fl (7.5-11.1); PLATELET COUNT 514 10^3/uL (134-434); RBC 3.07 M/mm3 (4.00-5.60); RDW 22.9 % (11.9-15.9); WHITE BLOOD COUNT 8.5 K/mm3 (4.0-10.0)
[2023-02-12 07:28] LABS: POTASSIUM 4.7 mmol/L (3.5-5.1)
[2023-02-12 07:32] LABS: CALCIUM 8.3 mg/dL (8.5-10.1); MAGNESIUM 1.9 mg/dL (1.8-2.4)
[2023-02-12 07:33] LABS: CREATININE 0.9 mg/dL (0.55-1.3)
[2023-02-12 07:34] LABS: TOT PROT 6.4 g/dl (6.4-8.2)
[2023-02-12 07:35] LABS: ALBUMIN 2.3 g/dl (3.4-5.0); BLOOD UREA NITROGEN 21.3 mg/dL (7-18)
[2023-02-12 07:38] LABS: PHOSPHOROUS 3.1 mg/dL (2.5-4.9)
[2023-02-12 07:39] LABS: BILIRUBIN,TOTAL 0.6 mg/dL (0.2-1)
[2023-02-12 08:49] LABS: ANISOCYTOSIS 0; HELMET CELLS 0; HOWELL-JOLLY BODIES 0; MACROCYTOSIS 0; OVALOCYTE 0; ROULEAU 0; SICKELED CELLS 0; TARGET CELLS 0; TEAR DROP CELLS 0; TOXIC GRANULATION 0
[2023-02-12] MEDS: PANTOPRAZOLE SODIUM 40 MG VIAL IVPUSH SCH ×2 (09:40→21:25)
[2023-02-12] MEDS: LACTULOSE 20 GM/30 ML UDC (FOR ORAL USE ONLY) PO SCH ×4 (09:42→21:24)
[2023-02-12] MEDS: QUEtiapine FUMARATE 50 MG TABLET PO SCH (09:42)
[2023-02-12] MEDS: DIVALPROEX SODIUM 250 MG TABLET E.C. PO SCH ×2 (09:43→21:25)
[2023-02-12] MEDS: FOLIC ACID 1 MG TABLET (FP) PO SCH (09:43)
[2023-02-12] MEDS ORDERED: THIAMINE HCL 100 MG TABLET (FP) PO SCH (10:00)
[2023-02-12] MEDS ORDERED: QUEtiapine FUMARATE 50 MG TABLET PO SCH (10:00)
[2023-02-12] MEDS ORDERED: FUROSEMIDE 40 MG/4 ML INJECTABLE VIAL IVPUSH SCH (10:00)
[2023-02-12] MEDS ORDERED: ENOXAPARIN NA (PORCINE) 40 MG/0.4 ML DISP.SYRIN SQ SCH (10:00)
[2023-02-12] MEDS: LIDOCAINE 4% PATCH TP SCH (10:29)
[2023-02-12] MEDS: NICOTINE 14 MG/24 HOURS TOPICAL PATCH TD SCH (10:29)
[2023-02-12] MEDS: THIAMINE HCL 200 MG/2 ML VIAL IVPB SCH ×2 (13:54→21:26)
[2023-02-12] MEDS ORDERED: SIMETHICONE 80 MG TAB.CHEW (FP) PO PRN (15:10)
[2023-02-12] MEDS ORDERED: FUROSEMIDE 40 MG/4 ML INJECTABLE VIAL IVPUSH ONE (16:36)
[2023-02-12] MEDS: QUEtiapine FUMARATE 100 MG TABLET (FP) PO SCH (21:25)
[2023-02-12] MEDS: LIDOCAINE PATCH REMOVAL MC SCH (21:26)
[2023-02-13] MEDS ORDERED: LORazepam 1 MG TABLET PO SCH (05:00)
[2023-02-13] MEDS: THIAMINE HCL 200 MG/2 ML VIAL IVPB SCH ×3 (06:16→22:04)
[2023-02-13 07:31] LABS: BASO % 0.9 % (0-2.0); EOS % 0.3 % (0-4.5); HEMATOCRIT 23.5 % (35.4-49); HEMOGLOBIN 7.4 GM/dL (11.7-16.9); LYMPH % 19.9 % (8-40); MCH 25.3 pg (25.7-33.7); MCHC 31.4 g/dl (32.0-35.9); MEAN CELL VOLUME 80.6 fl (80-96); MEAN PLT VOLUME 8.7 fl (7.5-11.1); MONO % 14.2 % (3.8-10.2); NEUT % 64.7 % (42.8-82.8); PLATELET COUNT 492 10^3/uL (134-434); RBC 2.92 M/mm3 (4.00-5.60); RDW 22.8 % (11.9-15.9); WHITE BLOOD COUNT 9.4 K/mm3 (4.0-10.0)
[2023-02-13 07:47] LABS: POTASSIUM 5.2 mmol/L (3.5-5.1)
[2023-02-13 07:49] LABS: ALBUMIN 2.3 g/dl (3.4-5.0); BLOOD UREA NITROGEN 28.6 mg/dL (7-18); CALCIUM 8.4 mg/dL (8.5-10.1)
[2023-02-13 07:51] LABS: MAGNESIUM 1.9 mg/dL (1.8-2.4)
[2023-02-13 07:54] LABS: BILIRUBIN,TOTAL 0.6 mg/dL (0.2-1); CREATININE 1.2 mg/dL (0.55-1.3); TOT PROT 6.6 g/dl (6.4-8.2)
[2023-02-13] MEDS ORDERED: FUROSEMIDE 40 MG TABLET (FP) PO SCH (10:00)
[2023-02-13] MEDS: PANTOPRAZOLE SODIUM 40 MG VIAL IVPUSH SCH ×2 (13:01→22:04)
[2023-02-13] MEDS: LACTULOSE 20 GM/30 ML UDC (FOR ORAL USE ONLY) PO SCH ×4 (13:01→22:04)
[2023-02-13] MEDS: LIDOCAINE 4% PATCH TP SCH (13:02)
[2023-02-13] MEDS: FOLIC ACID 1 MG TABLET (FP) PO SCH (13:02)
[2023-02-13] MEDS: QUEtiapine FUMARATE 50 MG TABLET PO SCH (13:02)
[2023-02-13] MEDS: DIVALPROEX SODIUM 250 MG TABLET E.C. PO SCH ×2 (13:02→22:12)
[2023-02-13] MEDS: NICOTINE 14 MG/24 HOURS TOPICAL PATCH TD SCH (13:03)
[2023-02-13] MEDS: FUROSEMIDE 40 MG/4 ML INJECTABLE VIAL IVPUSH SCH (13:03)
[2023-02-13] MEDS: CEFTRIAXONE 1 GM in DEXTROSE 5%-WATER - 50 ML IVPB SCH (17:43)
[2023-02-13] MEDS: DOXYCYCLINE INJECTION 100 MG in DEXTROSE 5%-WATER 100 ML IVPB SCH (22:04)
[2023-02-13] MEDS: QUEtiapine FUMARATE 100 MG TABLET (FP) PO SCH (22:12)
[2023-02-13] MEDS: LIDOCAINE PATCH REMOVAL MC SCH (22:32)
[2023-02-14] MEDS ORDERED: LORazepam 0.5 MG TABLET PO PRN
[2023-02-14] MEDS ORDERED: LORazepam 0.5 MG TABLET PO SCH (05:00)
[2023-02-14] MEDS: THIAMINE HCL 200 MG/2 ML VIAL IVPB SCH ×3 (05:45→22:46)
[2023-02-14 08:50] LABS: BASO % 0.7 % (0-2.0); EOS % 0.1 % (0-4.5); HEMATOCRIT 23.2 % (35.4-49); LYMPH % 17.5 % (8-40); MCH 24.5 pg (25.7-33.7); MCHC 30.2 g/dl (32.0-35.9); MEAN CELL VOLUME 81.1 fl (80-96); MEAN PLT VOLUME 9.3 fl (7.5-11.1); MONO % 12.5 % (3.8-10.2); NEUT % 69.2 % (42.8-82.8); PLATELET COUNT 423 10^3/uL (134-434); RBC 2.86 M/mm3 (4.00-5.60); RDW 22.6 % (11.9-15.9); WHITE BLOOD COUNT 6.6 K/mm3 (4.0-10.0)
[2023-02-14 08:55] LABS: POTASSIUM 4.9 mmol/L (3.5-5.1)
[2023-02-14 09:04] LABS: BLOOD UREA NITROGEN 35.2 mg/dL (7-18); CALCIUM 8.1 mg/dL (8.5-10.1)
[2023-02-14 09:05] LABS: ALBUMIN 2.2 g/dl (3.4-5.0); MAGNESIUM 2.1 mg/dL (1.8-2.4)
[2023-02-14 09:07] LABS: CREATININE 1.2 mg/dL (0.55-1.3); PHOSPHOROUS 5.3 mg/dL (2.5-4.9)
[2023-02-14 09:08] LABS: BILIRUBIN,TOTAL 1.2 mg/dL (0.2-1); TOT PROT 6.3 g/dl (6.4-8.2)
[2023-02-14] MEDS: DOXYCYCLINE INJECTION 100 MG in DEXTROSE 5%-WATER 100 ML IVPB SCH ×2 (09:14→22:46)
[2023-02-14] MEDS: LIDOCAINE 4% PATCH TP SCH (09:14)
[2023-02-14] MEDS: CEFTRIAXONE 1 GM in DEXTROSE 5%-WATER - 50 ML IVPB SCH (09:14)
[2023-02-14] MEDS: DIVALPROEX SODIUM 250 MG TABLET E.C. PO SCH ×2 (09:15→22:46)
[2023-02-14] MEDS: PANTOPRAZOLE SODIUM 40 MG VIAL IVPUSH SCH ×2 (09:15→22:46)
[2023-02-14] MEDS: NICOTINE 14 MG/24 HOURS TOPICAL PATCH TD SCH (09:15)
[2023-02-14] MEDS: LACTULOSE 20 GM/30 ML UDC (FOR ORAL USE ONLY) PO SCH ×3 (09:15→22:45)
[2023-02-14] MEDS: QUEtiapine FUMARATE 50 MG TABLET PO SCH (09:16)
[2023-02-14] MEDS: FUROSEMIDE 40 MG/4 ML INJECTABLE VIAL IVPUSH SCH (09:16)
[2023-02-14] MEDS ORDERED: LACTULOSE 20 GM/30 ML UDC (FOR ORAL USE ONLY) PO SCH (14:33)
[2023-02-14] MEDS ORDERED: FUROSEMIDE 40 MG/4 ML INJECTABLE VIAL IVPUSH ONE ×2 (18:32→22:30)
[2023-02-14] MEDS: QUEtiapine FUMARATE 100 MG TABLET (FP) PO SCH (22:46)
[2023-02-14] MEDS: LIDOCAINE PATCH REMOVAL MC SCH (22:46)
[2023-02-14] MEDS: LORazepam 1 MG TABLET PO PRN (23:51)
[2023-02-15] MEDS ORDERED: LORazepam 2 MG/ML SDV VIAL IVPUSH ONE (00:36)
[2023-02-15] MEDS ORDERED: LORazepam 0.5 MG TABLET PO ONE (05:00)
[2023-02-15] MEDS: THIAMINE HCL 200 MG/2 ML VIAL IVPB SCH ×3 (05:56→22:35)
[2023-02-15 08:00] LABS: HEMATOCRIT 27.3 % (35.4-49); HEMOGLOBIN 8.1 GM/dL (11.7-16.9); MCH 24.6 pg (25.7-33.7); MCHC 29.8 g/dl (32.0-35.9); MEAN CELL VOLUME 82.4 fl (80-96); PLATELET COUNT 349 10^3/uL (134-434); RBC 3.31 M/mm3 (4.00-5.60); RDW 21.3 % (11.9-15.9)
[2023-02-15 08:31] LABS: POTASSIUM 3.8 mmol/L (3.5-5.1)
[2023-02-15 08:37] LABS: ALBUMIN 2.2 g/dl (3.4-5.0); BLOOD UREA NITROGEN 25.9 mg/dL (7-18)
[2023-02-15 08:40] LABS: CREATININE 1.1 mg/dL (0.55-1.3)
[2023-02-15 08:41] LABS: BILIRUBIN,TOTAL 0.8 mg/dL (0.2-1)
[2023-02-15 08:42] LABS: TOT PROT 6.2 g/dl (6.4-8.2)
[2023-02-15] MEDS ORDERED: FUROSEMIDE 40 MG TABLET (FP) PO SCH (10:00)
[2023-02-15] MEDS ORDERED: IRON SUCROSE INJECTION 100 MG in SODIUM CHLORIDE 95 ML IVPB ONE (10:00)
[2023-02-15] MEDS: LACTULOSE 20 GM/30 ML UDC (FOR ORAL USE ONLY) PO SCH ×4 (11:07→22:32)
[2023-02-15] MEDS: LIDOCAINE 4% PATCH TP SCH ×2 (11:07→12:38)
[2023-02-15] MEDS: PANTOPRAZOLE SODIUM 40 MG VIAL IVPUSH SCH ×2 (11:07→22:33)
[2023-02-15] MEDS: DIVALPROEX SODIUM 250 MG TABLET E.C. PO SCH ×2 (11:09→22:33)
[2023-02-15] MEDS: QUEtiapine FUMARATE 50 MG TABLET PO SCH (11:09)
[2023-02-15] MEDS: CEFTRIAXONE 1 GM in DEXTROSE 5%-WATER - 50 ML IVPB SCH (11:09)
[2023-02-15] MEDS: NICOTINE 14 MG/24 HOURS TOPICAL PATCH TD SCH (11:10)
[2023-02-15] MEDS: DOXYCYCLINE INJECTION 100 MG in DEXTROSE 5%-WATER 100 ML IVPB SCH ×2 (11:10→22:35)
[2023-02-15] MEDS: QUEtiapine FUMARATE 100 MG TABLET (FP) PO SCH (22:33)
[2023-02-15] MEDS: LIDOCAINE PATCH REMOVAL MC SCH (23:39)
[2023-02-16] MEDS: LORazepam 1 MG TABLET PO PRN (00:02)
[2023-02-16 07:29] LABS: HEMATOCRIT 26.8 % (35.4-49); HEMOGLOBIN 8.3 GM/dL (11.7-16.9); MCH 24.9 pg (25.7-33.7); MCHC 30.8 g/dl (32.0-35.9); MEAN CELL VOLUME 80.9 fl (80-96); MEAN PLT VOLUME 8.5 fl (7.5-11.1); PLATELET COUNT 354 10^3/uL (134-434); RBC 3.32 M/mm3 (4.00-5.60); RDW 21.3 % (11.9-15.9); WHITE BLOOD COUNT 7.1 K/mm3 (4.0-10.0)
[2023-02-16 08:00] LABS: POTASSIUM 3.7 mmol/L (3.5-5.1)
[2023-02-16 08:03] LABS: BLOOD UREA NITROGEN 11.9 mg/dL (7-18)
[2023-02-16 08:07] LABS: CREATININE 0.9 mg/dL (0.55-1.3)
[2023-02-16 08:40] VITALS: BP 101/71; PULSE 118; RESP 18; TEMP 99.2
== END 2023-02-16 09:44 | disposition left against medical advice (07) | DRG 194 ==
LOC: JER 12:08 → JERBED 15:45 → J4W 17:06
PROVIDERS: ADMIT Internal Medicine; ATTEND Internal Medicine
PROC: HZ2ZZZZ Detoxification Services for Substance Abuse Treatment (ICD-10-PCS; principal; 2023-02-11)
PROC: 30233N1 Transfusion of Nonautologous Red Blood Cells into Peripheral Vein, Percutaneous Approach (ICD-10-PCS; 2023-02-14)
DX: I50.9 Heart failure, unspecified (principal); G93.41 Metabolic encephalopathy; J18.9 Pneumonia, unspecified organism; F14.20 Cocaine dependence, uncomplicated; F25.9 Schizoaffective disorder, unspecified; D64.9 Anemia, unspecified; F10.239 Alcohol dependence with withdrawal, unspecified; F12.20 Cannabis dependence, uncomplicated; F17.210 Nicotine dependence, cigarettes, uncomplicated; I51.7 Cardiomegaly; Z59.00 Homelessness unspecified; E87.70 Fluid overload, unspecified
CPT/HCPCS: 0241U-QW; 36415; 36430; 71045-TC-FY; 76705-TC; 80048; 80053; 80061; 81003; 82140; 82550; 82607; 82728; 82746; 83540; 83550; 83615; 83690; 83735; 83880; 84100; 84466; 84484; 85025; 85027; 85045; 85610; 85730; 86850; 86900; 86901; 86922; 87040; 87899; 93005; 93010; 99285-25; J1756; P9058